=== PATIENT | male | born 1980 | race Caucasian/White ===

== ENCOUNTER 2016-10-24 09:50 | Emergency (ER) | payer OTHER ==
[2016-10-24 10:02] VITALS: TEMP 98.2
--- NOTE | 2016-10-24 10:32 | EDPHY ---
H & P Time Seen by Provider: 10/24/16 10:23 HPI/ROS: CHIEF COMPLAINT: Left knee pain HISTORY OF PRESENT ILLNESS: Patient is a 36-year-old male who presents emergency department with left knee injury. Patient states that he was laying tile 2 weeks ago. He stood from tiling and twisted. He felt a sudden pain on the medial aspect of his left knee. He felt as though his knee is been clicking since that time. Has mild discomfort with movement. On Monday the patient student did the same motion. He again felt pain in his medial knee and below his patella. Noted that his knee was swollen inferior to his patella. He has no swelling at this time. No redness. No numbness or tingling. REVIEW OF SYSTEMS: My complete review of systems is negative except as mentioned in the HPI. Past Medical/Surgical History: Orthopedic surgery Smoking Status: Never smoked Physical Exam: Vitals noted General Appearance: Alert and no distress. Head: Pupils equal. Normal. Respiratory: No respiratory distress. Cardiac: regular rate and rhythm. Extremities: Patient's knees appear symmetric. His left knee has no swelling or redness. No notable tenderness to palpation. His ligaments are stable. Neurovascularly intact distally. Skin: No rashes or lesions. Neuro: Alert. Normal mood and affect. Constitutional: Initial Vital Signs Temperature (C) 36.8 C 10/24/16 09:52 Heart Rate 101 H 10/24/16 09:52 Respiratory Rate 18 10/24/16 09:52 Blood Pressure 148/86 H 10/24/16 09:52 O2 Sat (%) 95 10/24/16 09:52 O2 Delivery Mode Room Air Allergies/Adverse Reactions: No Known Allergies Allergy (Unverified 01/18/14 10:19) Home Medications: Medication Instructions Recorded NK [No Known Home Meds] 11/27/14 Medical Decision Making ED Course/Re-evaluation: I discussed possible etiologies with the patient. I answered all his questions. X-ray of his left knee was ordered. Left knee x-ray: No acute disease noted. Please refer the dictated report. Old fibular fracture. I discussed the results with the patient. I answered all his questions. He will avoid kneeling on his left knee. He will use ice. He will follow up with workman's Comp and Orthopedics. Differential Diagnosis: My differential includes but is not limited to sprain, strain, contusion, meniscus injury, ligamentous injury, bursitis Departure - Departure Disposition: Home, Routine, Self-Care Clinical Impression: Left knee pain Qualifiers: Chronicity: acute Qualified Code(s): M25.562 - Pain in left knee Condition: Good Instructions: Knee Pain (ED) Additional Instructions: Your x-ray was normal. Follow up with Orthopedics and workman's Comp. Avoid kneeling on your left knee. Referrals: Lokesh Jarvis MD [Medical Doctor] - 5-7 days, if not improved Work Comp Referral [facility] [place] [Outside] - 5-7 days, if not improved Stand Alone Forms: Work Comp Follow Up
[2016-10-24 11:05] VITALS: BP 151/89; PULSE 99; RESP 16; O2SAT 96
== END 2016-10-24 11:00 | disposition home or self-care (01) ==
LOC: CED 09:50
DX: S89.92XA Unspecified injury of left lower leg, initial encounter (principal); X58.XXXA Exposure to other specified factors, initial encounter
CPT/HCPCS: 73564-PO